=== PATIENT | female | born 2000 | race Caucasian/White ===

== ENCOUNTER 2023-10-25 13:20 | Emergency (ER) | payer BC ==
[~2023-10-25] VITALS: Ht 170.2 cm; Wt 54.4 kg
[2023-10-25 13:58] VITALS: BP 100/64; PULSE 68; RESP 18; TEMP 97.5; O2SAT 97
[2023-10-25 15:34] VITALS: BP 102/65; PULSE 70; RESP 18; TEMP 98; O2SAT 98
[2023-10-25] MEDS ORDERED: IBUP-2213 PO (16:26)
== END 2023-10-25 16:30 | disposition home or self-care (01) ==
LOC: MED 13:20
DX: R10.30 Lower abdominal pain, unspecified (principal); M54.50 Low back pain, unspecified; Z98.890 Other specified postprocedural states
CPT/HCPCS: 76856; 81002; 81025; 99284; Q0092